=== PATIENT | female | born 1975 | race Caucasian/White ===

== ENCOUNTER 2017-10-04 07:37 | Emergency (ER) | payer OTHER ==
[~2017-10-04] VITALS: Ht 167.6 cm; Wt 52.0 kg
[2017-10-04] MEDS ORDERED: ACETAMINOPHEN 500 MG TABLET PO ONE (08:00)
[2017-10-04] MEDS ORDERED: PLEASE ENTER ALLERGIES MC SCH (08:00)
[2017-10-04] MEDS ORDERED: ACETAMINOPHEN 500 MG TABLET ONE (10:02)
[2017-10-04 10:19] VITALS: BP 116/71
== END 2017-10-04 10:43 | disposition home or self-care (01) ==
LOC: ED 10:37
DX: S09.90XA Unspecified injury of head, initial encounter (principal); Y04.8XXA Assault by other bodily force, initial encounter; Y93.89 Activity, other specified; Y99.8 Other external cause status; Y92.410 Unspecified street and highway as the place of occurrence of the external cause
CPT/HCPCS: 70450; 99284